=== PATIENT | female | born 1935 | race Caucasian/White ===

== ENCOUNTER 2016-08-05 16:51 | Emergency (ER) | payer MEDICARE, OTHER ==
[~2016-08-05 16:51] MED LIST: CALC600T34 PO; CELE200 PO; CITA-48 PO; CLAR5TAB PO; DILA2TAB4 PO; FISH500C PO; GLIP5 PO; LASI20TA PO; LEVO175T19 PO; POTA-243 PO; SIMV20TA OR; SITA100 PO; TAB-TAB PO; TRAM50TA PO
[2016-08-05 16:58] VITALS: BP 123/54; PULSE 80; RESP 18; TEMP 97.7; O2SAT 96
[2016-08-05] MEDS ORDERED: CALC500T17 PO (17:22)
[2016-08-05] MEDS ORDERED: FISHCAP4 PO (17:22)
[2016-08-05] MEDS ORDERED: LEVO-154 PO (17:22)
[2016-08-05] MEDS ORDERED: GLYB5TAB3 PO (17:22)
[2016-08-05] MEDS ORDERED: FURO1TAB62 PO (17:22)
[2016-08-05] MEDS ORDERED: LORA10TA PO (17:22)
[2016-08-05] MEDS ORDERED: ASPI1TAB69 PO (17:22)
[2016-08-05] MEDS ORDERED: BUME2TAB PO (17:22)
[2016-08-05] MEDS ORDERED: OMEG100037 PO (17:22)
[2016-08-05] MEDS ORDERED: POTA10TA8 PO (17:22)
[2016-08-05] MEDS ORDERED: MULT1TAB84 PO (17:22)
[2016-08-05] MEDS ORDERED: SITA1TAB2 PO (17:22)
[2016-08-05] MEDS ORDERED: CELE200C PO (17:22)
[2016-08-05] MEDS ORDERED: ZITHTAB PO (17:42)
[2016-08-05] MEDS ORDERED: TYLETAB34 PO (17:42)
--- NOTE | 2016-08-05 17:45 | PD ---
HPI Chief Complaint: Cold / Flu Symptoms Time Seen by Provider: 17:24 Travel History International Travel<30 days: No Contact w/Intl Traveler<30days: No Traveled to known affect area: No History of Present Illness HPI This patient complains of coughing up thick green phlegm. He has had some low- grade fevers. Her chest hurts when she coughs but otherwise no chest discomfort. Severity is mild to moderate. No alleviating factors. She is not short of breath. PFSH Past Medical History Arthritis: Yes Asthma: Yes (induced by upper respiratory) Autoimmune Disease: No Blood Disorders: No Anxiety: Yes Depression: Yes Cancer: Yes (squamous left jaw area) Cardiovascular Problems: Yes High Cholesterol: Yes Chemotherapy: No COPD: Yes Cerebrovascular Accident: No Diabetes: Yes Patient Takes Glucophage: No Diminished Hearing: No Endocrine: Yes Gastrointestinal Disorders: Yes GERD: No Genitourinary: Yes Headaches: No Hepatitis: No Hiatal Hernia: No Hypertension: Yes Immune Disorder: No Implanted Vascular Access Dvce: Yes Kidney Stones: No Musculoskeletal: Yes Neurologic: No Psychiatric: Yes Reproductive: No Respiratory: Yes Immunizations Current: Yes Migraines: No Radiation Therapy: No Renal Failure: No Seizures: No Sleep Apnea: Yes (couldn't do cpap) Thyroid Disease: Yes Ulcer: No Menopausal: Yes : 3 Para: 0 Miscarriage: 3 Tubal Ligation: Yes Past Surgical History Appendectomy: Yes Arteriovenous Shunt: No Cardiac Surgery: No Cholecystectomy: Yes Ear Surgery: No Endocrine Surgery: No Eye Surgery: Yes (kena cataract surgery) Genitourinary Surgery: No Gynecologic Surgery: Yes (tubaligation right breast benign lumpectomy) Insulin Pump: No Joint Replacement: Yes (left hip replacement 3 srews in right femur) Oral Surgery: Yes (tonsillectomy) Pacemaker: No Thoracic Surgery: No Tonsillectomy: Yes Other Surgery: Yes (SINUES SX x2, LUMPECTOMY RIGHT BREAST) Social History Alcohol Use: No Tobacco Use: Yes (07/20 PPD) Substance Use: No Allergies-Medications (Allergen,Severity, Reaction): Coded Allergies: Hydrocodone (Verified Allergy, Severe, Itching, 08/05/16) Iodine (Verified Allergy, Severe, Itching, 08/05/16) IODINE DYE PER PATIENT Iopamidol (ISOVUE) (Verified Allergy, Severe, PT HAD ANAPHYLAXIS, 08/05/16) Morphine (Verified Allergy, Severe, Itching, 08/05/16) Oxycodone (Verified Allergy, Severe, itching, 08/05/16) Percocet (Verified Allergy, Severe, Itching, 08/05/16) Phenobarbital (Verified Allergy, Severe, Anaphylaxis, 08/05/16) Sulfa (Verified Allergy, Severe, Hallucinations, 08/05/16) PATIENT STATES " I AM NOT ALLERGIC TO SULFA" Reported Meds & Prescriptions Reported Meds & Active Scripts Active Tylenol-Codeine #3 (Acetaminophen-Codeine) 300-30 mg Tab 1 Tab PO Q6H PRN Zithromax Z-Bobby (Azithromycin) 250 Mg Dspk 250 Mg PO DIRECTED 500 MG (2 tabs) day 1, then 1 tab days 2-5. Reported Bumetanide 2 Mg Tab 2 Mg PO EVERY OTHER DAY Lasix (Furosemide) 20 Mg Tab 20 Mg PO EVERY OTHER DAY Fish Oil 1000 mg ([place]-3 Fatty Acids) 1 Cap Cap 2 Mg PO DAILY Fish Oil + D3 (Fish Oil-Cholecalciferol) 1,200-1,000 Mg-Unit Cap 1 Cap PO DAILY Aspirin 81 Mg Tabdr 81 Mg PO DAILY Calcium (Calcium Carbonate) 1,250 Mg Tab 1,250 Mg PO DAILY 1,250 mg calcium carbonate (500 mg elemental calcium) Multivitamin Adults (Multiple Vitamins W/ Minerals) 1 Tab 1 Tab PO DAILY Loratadine 10 Mg Tab 10 Mg PO DAILY Potassium Chloride CR (Potassium Chloride) 10 Meq Tab 10 Meq PO DAILY Januvia (Sitagliptin Phosphate) 100 Mg Tab 100 Mg PO DAILY Levothyroxine (Levothyroxine Sodium) 175 Mcg Tab 175 Mcg PO DAILY Glyburide 5 Mg Tab 5 Mg PO TID Take with meals at the same time each day Celebrex (Celecoxib) 200 Mg Cap 200 Mg PO DAILY Review of Systems General / Constitutional: Positive: Fever HENT: No: Headaches Respiratory: Positive: Cough, No: Shortness of Breath Physical Exam Narrative CARDIOVASCULAR: Regular rate and rhythm without murmur. Extremities showed no edema or varicosities. RESPIRATORY: Respiratory effort unlabored, no retractions or use of accessory muscles. Breath sounds are clear and symmetric. Chest wall: Has readily reproducible central sternal tenderness there replicates her discomfort when she coughs. Data Data Last Documented VS Vital Signs Date Time Temp Pulse Resp B/P Pulse Ox O2 Delivery O2 Flow Rate FiO2 08/05/16 16:58 97.7 80 18 123/54 96 [facility] Medical Decision Making Medical Screen Exam Complete: Yes Emergency Medical Condition: Yes Medical Record Reviewed: Yes Differential Diagnosis Bronchitis, pneumonia, URI Narrative Course I have reviewed the patient's electronic medical record. Presentation seems most consistent with an acute bronchitis. I prescribed her a Z-Bobby Her chest discomfort is clearly noncardiac and musculoskeletal in origin and will not require further evaluation I wrote her a few Tylenol 3 for discomfort which she can take without difficulty Warned her about sedation and constipation Diagnosis Primary Impression: Acute bronchitis Qualified Code: J20.9 - Acute bronchitis, unspecified organism Additional Impression: Musculoskeletal chest pain Additional Instructions: The patient was advised to follow up with their physician and return if they worsen. The patient was warned about potential sedation for the medications they will receive on prescription. Med/Other Pt SpecificInfo: Prescription(s) given Scripts Acetaminophen-Codeine (Tylenol-Codeine #3)300-30 mg Tab1 Tab PO Q6H PRN (PAIN) # 14 TAB Ref 0 Prov:Adolfo Candelario MD 08/05/16 Azithromycin (Zithromax Z-Bobby)250 Mg [id number] Mg PO DIRECTED #1 DSPK Ref 0 500 MG (2 tabs) day 1, then 1 tab days 2-5. Prov:Adolfo Candelario MD 08/05/16 Disposition: 01 DISCHARGE HOME Condition: Stable Adolfo Candelario MD Aug 05, 2016 17:45
== END 2016-08-05 17:55 | disposition home or self-care (01) ==
LOC: PHEFT 16:51
DX: J20.9 Acute bronchitis, unspecified (principal); E78.00 Pure hypercholesterolemia, unspecified; I10 Essential (primary) hypertension; E11.9 Type 2 diabetes mellitus without complications; F17.210 Nicotine dependence, cigarettes, uncomplicated; Z79.4 Long term (current) use of insulin
CPT/HCPCS: 99283

== ENCOUNTER 2017-01-22 16:16 | Emergency (ER) | payer MEDICARE, OTHER ==
[~2017-01-22 16:16] MED LIST changes: +ASPI1TAB69 PO; +BUME2TAB PO; +CALC500T17 PO; -CALC600T34 PO; -CELE200 PO; +CELE200C PO; -CITA-48 PO; -CLAR5TAB PO; -DILA2TAB4 PO; -FISH500C PO; +FISHCAP4 PO; +FURO1TAB62 PO; -GLIP5 PO; +GLYB5TAB3 PO; -LASI20TA PO; +LEVO-154 PO; -LEVO175T19 PO; +LORA10TA PO; +MULT1TAB84 PO; +OMEG100037 PO; -POTA-243 PO; +POTA10TA8 PO; -SIMV20TA OR; -SITA100 PO; +SITA1TAB2 PO; -TAB-TAB PO; -TRAM50TA PO; +TYLETAB34 PO; +ZITHTAB PO
[2017-01-22 16:26] VITALS: BP 159/70; PULSE 85; RESP 16; TEMP 98.5; O2SAT 98
[2017-01-22] MEDS ORDERED: CLAR10CA3 PO (16:44)
[2017-01-22] MEDS ORDERED: POTA10TA2 PO (16:44)
[2017-01-22] MEDS ORDERED: ASPI81CH CHEW (16:44)
[2017-01-22] MEDS ORDERED: MULTTAB67 PO (16:44)
[2017-01-22] MEDS ORDERED: VENL37.5 PO (16:44)
[2017-01-22] MEDS ORDERED: FAMOTIDINE 20 MG/2 ML VIAL IV PUSH ONE (16:45)
[2017-01-22] MEDS ORDERED: methylPREDNISolone SOD SUCC 125 MG/2 ML VIAL IV PUSH ONE (16:45)
[2017-01-22] MEDS ORDERED: hydrOXYzine HCL 25 MG TAB PO ONE (16:45)
[2017-01-22] MEDS ORDERED: SODIUM CHLOR 0.9% 1000 ML INJ 1,000 ML IV ONE (16:45)
--- NOTE | 2017-01-22 16:45 | PD ---
HPI Chief Complaint: Allergic/Adverse Reaction Time Seen by Provider: 16:33 Travel History International Travel<30 days: No Contact w/Intl Traveler<30days: No Traveled to known affect area: No History of Present Illness HPI This is an 81-year-old female who presents to the emergency department with itching following taking Bactrim. Her itching is severe, all over her body, constant with no associated shortness of breath or wheezing. She says she often gets allergic reactions to medications. She took 2 tablets of Benadryl prior to arriving. PFSH Past Medical History Arthritis: Yes Asthma: Yes (induced by upper respiratory) Autoimmune Disease: No Blood Disorders: No Anxiety: Yes Depression: Yes Cancer: Yes (squamous left jaw area) Cardiovascular Problems: Yes High Cholesterol: Yes Chemotherapy: No COPD: Yes Cerebrovascular Accident: No Diabetes: Yes Patient Takes Glucophage: No Diminished Hearing: No Endocrine: Yes Gastrointestinal Disorders: Yes GERD: No Genitourinary: Yes Headaches: No Hepatitis: No Hiatal Hernia: No Hypertension: Yes Immune Disorder: No Implanted Vascular Access Dvce: Yes Kidney Stones: No Musculoskeletal: Yes Neurologic: No Psychiatric: Yes Reproductive: No Respiratory: Yes Immunizations Current: Yes Migraines: No Radiation Therapy: No Renal Failure: No Seizures: No Sleep Apnea: Yes (couldn't do cpap) Thyroid Disease: Yes Ulcer: No Menopausal: Yes : 3 Para: 0 Miscarriage: 3 Tubal Ligation: Yes Past Surgical History Appendectomy: Yes Arteriovenous Shunt: No Cardiac Surgery: No Cholecystectomy: Yes Ear Surgery: No Endocrine Surgery: No Eye Surgery: Yes (kena cataract surgery) Genitourinary Surgery: No Gynecologic Surgery: Yes (tubaligation right breast benign lumpectomy) Insulin Pump: No Joint Replacement: Yes (left hip replacement 3 srews in right femur) Neurologic Surgery: No Oral Surgery: Yes (tonsillectomy) Pacemaker: No Thoracic Surgery: No Tonsillectomy: Yes Other Surgery: Yes (SINUES SX x2, LUMPECTOMY RIGHT BREAST) Social History Alcohol Use: No Tobacco Use: Yes (3/4 PPD) Substance Use: No Allergies-Medications (Allergen,Severity, Reaction): Coded Allergies: Sulfa (Sulfonamide Antibiotics) (Unverified Allergy, Severe, Hallucinations, 12/31/16) PATIENT STATES " I AM NOT ALLERGIC TO SULFA" acetaminophen (Unverified Allergy, Severe, Itching, 12/31/16) hydrocodone (Unverified Allergy, Severe, Itching, 12/31/16) iodine (Unverified Allergy, Severe, Itching, 12/31/16) IODINE DYE PER PATIENT iopamidol (Unverified Allergy, Severe, PT HAD ANAPHYLAXIS, 12/31/16) morphine (Unverified Allergy, Severe, Itching, 12/31/16) oxycodone (Unverified Allergy, Severe, Itching, 12/31/16) phenobarbital (Unverified Allergy, Severe, Anaphylaxis, 12/31/16) potassium iodide (Unverified Allergy, Severe, Itching, 12/31/16) IODINE DYE PER PATIENT povidone-iodine (Unverified Allergy, Severe, Itching, 12/31/16) IODINE DYE PER PATIENT sodium iodide (Unverified Allergy, Severe, Itching, 12/31/16) IODINE DYE PER PATIENT sodium iodide (Unverified Allergy, Severe, Itching, 12/31/16) IODINE DYE PER PATIENT Reported Meds & Prescriptions Reported Meds & Active Scripts Active Reported Aspirin 81 Mg Chew 81 Mg CHEW DAILY Multiple Vitamin 1 Tab 1 Tab PO DAILY Claritin (Loratadine) 10 Mg Cap 10 Mg PO DAILY Potassium Chloride ER (Potassium Chloride) 10 Meq Tab 10 Meq PO DAILY Effexor (Venlafaxine HCl) 37.5 Mg Tab 37.5 Mg PO Q12H Lasix (Furosemide) 20 Mg Tab 20 Mg PO EVERY OTHER DAY Januvia (Sitagliptin Phosphate) 100 Mg Tab 100 Mg PO DAILY Levothyroxine (Levothyroxine Sodium) 175 Mcg Tab 175 Mcg PO DAILY Celebrex (Celecoxib) 200 Mg Cap 200 Mg PO DAILY Review of Systems Except as stated in HPI: all other systems reviewed are Neg Physical Exam Narrative GENERAL:Well appearing, no acute distress SKIN: Focused skin assessment warm and dry. HEAD: Atraumatic. Normocephalic. EYES: Pupils equal and round. No injection or drainage. ENT: Moist mucous membranes NECK: Trachea midline. CARDIOVASCULAR: Regular rate and rhythm. No murmur appreciated. RESPIRATORY: Clear to auscultation. Breath sounds equal bilaterally. GASTROINTESTINAL: Abdomen soft, non-tender, nondistended. MUSCULOSKELETAL: No obvious deformities. NEUROLOGICAL: Awake and alert. No obvious cranial nerve deficits. Moving all extremities. PSYCHIATRIC: Appropriate mood and affect; insight and judgment normal. Data Data Last Documented VS Vital Signs Date Time Temp Pulse Resp B/P (MAP) Pulse Ox O2 Delivery O2 Flow Rate FiO2 01/22/17 17:57 67 18 127/58 (81) 98 Room Air 01/22/17 16:26 98.5 Orders Orders Methylprednisolone So Succ Inj (Solumedr (01/22/17 16:45) Hydroxyzine Hcl (Atarax) (01/22/17 16:45) Sodium Chlor 0.9% 1000 Ml Inj (Ns 1000 M (01/22/17 16:45) Famotidine Inj (Pepcid Inj) (01/22/17 16:45) MDM Medical Decision Making Medical Screen Exam Complete: Yes Emergency Medical Condition: Yes Differential Diagnosis Acute allergic reaction, anaphylaxis, panic attack Narrative Course This is an 81-year-old female who presents to the emergency department reporting itching all over following taking Bactrim. She has no wheezing on exam and no shortness of breath. I don't think this reflects anaphylaxis. She was given Atarax and methylprednisolone. Her symptoms completely resolved. I think a big component of this was panic and anxiety. Patient feels much better. She'll be discharged home on steroids and her primary care doctor is changing her antibiotic. Diagnosis Primary Impression: Adverse effect of drug Qualified Codes: T88.7XXA - Unspecified adverse effect of drug or medicament, initial encounter Patient Instructions: General Instructions Additional Instructions: If you develop swelling of the throat or coughing a lot, wheezing or trouble breathing, throwing up or having diarrhea, feeling dizzy or passing out, or spreading of your rash return to the emergency room immediately as you may be having a life threatening allergic reaction. Complete your course of steroids and take benadryl every 4 hours for the next 48 hours and then as needed for itching or other symptoms. Med/Other Pt SpecificInfo: Prescription(s) given Scripts Prednisone (Prednisone) 20 Mg Tab 40 MG PO DIRECTED for 4 Days, TAB 0 Refills Prov: Bette Spann MD 01/22/17 Disposition: 01 DISCHARGE HOME Condition: Stable Bette Spann MD Jan 22, 2017 16:45
[2017-01-22 17:57] VITALS: BP 127/58; PULSE 67; RESP 18; O2SAT 98
[2017-01-22] MEDS ORDERED: PRED20 PO (18:02)
== END 2017-01-22 19:04 | disposition home or self-care (01) ==
LOC: PHED 16:16
DX: T37.0X5A Adverse effect of sulfonamides, initial encounter (principal); I10 Essential (primary) hypertension; F17.210 Nicotine dependence, cigarettes, uncomplicated
CPT/HCPCS: 96361; 96374; 96375; 99284; J2930; J7030